=== PATIENT | male | born 1985 | race Caucasian/White ===

== ENCOUNTER 2021-07-16 13:02 | Outpatient (CLI) | payer OTHER, SELFPAY ==
[2021-07-16 13:33] LABS: Hemoglobin A1C 5.2 % (<5.7)
[2021-07-16 14:13] LABS: Free T4 Free Thyroxine 0.96 ng/dL (0.76-1.46); Thyroid Stimulating Hormone 0.34 uIU/mL (0.36-3.74)
[2021-07-18 04:50] LABS: Total Triiodothyronine (T3) 122 ng/dL (76-181)
[2021-07-19 04:58] LABS: Thyroid Peroxidase Antibodies 2 IU/mL (<9)
== END 2021-07-16 13:03 | disposition home or self-care (01) ==
LOC: CHSLAB 13:13
PROVIDERS: PCP Family Medicine; Visit Provider Nurse Practitioner
DX: R79.89 Other specified abnormal findings of blood chemistry (principal); R73.01 Impaired fasting glucose
CPT/HCPCS: 36415; 83036; 84439; 84443; 84480; 86376

== ENCOUNTER 2021-08-13 12:41 | Outpatient (CLI) | payer OTHER, SELFPAY | END 2021-08-13 12:42 | disposition home or self-care (01) | LOC: CHSLAB 12:44 | PROVIDERS: PCP Family Medicine; Visit Provider Family Medicine | DX: R79.89 Other specified abnormal findings of blood chemistry (principal) | CPT/HCPCS: 36415; 84443 ==